=== PATIENT | male | born 1970 | race Caucasian/White ===

== ENCOUNTER 2018-09-20 19:30 | Emergency (ER) | payer BC ==
[~2018-09-20] VITALS: Ht 175.3 cm; Wt 71.7 kg
[~2018-09-20 19:30] MED LIST: ASCORBIC ACID500 MG PO; CIPRO500 MG PO; Calcium Carbonate PO; HUMALOG100 UNIT/3 SQ; LANTUS100 UNITS/ SQ; MAGNESIUM OXID400 MG PO; Multivitamins/Minerals PO; PROTONIX40 MG/ML PO; TYLENOL WITH C1 EACH PO; ZINC SULFATE220 M1 PO
[2018-09-20] MEDS ORDERED: CLINDAMYCIN PHOS 900MG/ 50ML 50 ML IV ONE ×2 (20:24→20:30)
[2018-09-20 20:52] LABS: BASOPHILS % 0.5 % (0.0-1.0); EOSINOPHILS # (AUTO) 0.1 (0.0-0.4); EOSINOPHILS % 0.8 % (0.0-6.0); HEMATOCRIT 36.7 % (38.2-49.6); HEMOGLOBIN 12.9 g/dL (14.0-18.0); LYMPHOCYTES # (AUTO) 1.9 (1.0-3.2); LYMPHOCYTES % 29.2 % (18.0-39.1); MEAN CORPUSCULAR HEMOGLOBIN 30.1 pg (28-32); MEAN CORPUSCULAR HGB CONC 35.1 g/dL (31-35); MEAN CORPUSCULAR VOLUME 85.5 fL (81-99); MONOCYTES # (AUTO) 0.6 (0.2-0.8); MONOCYTES % 8.5 % (4.4-11.3); NEUTROPHILS # (AUTO) 3.9 (2.1-6.9); NEUTROPHILS % 60.4 % (38.7-80.0); PLATELET COUNT 203 x10e3/uL (140-360); RED BLOOD COUNT 4.29 x10e6/uL (4.3-5.7); RED CELL DISTRIBUTION WIDTH 11.9 % (11.7-14.4)
[2018-09-20 21:05] LABS: ALANINE AMINOTRANSFERASE 16 IU/L (0-55); ALBUMIN 3.7 g/dL (3.5-5.0); ALKALINE PHOSPHATASE 79 IU/L (40-150); ANION GAP 14.2 mmol/L (8-16); BLOOD UREA NITROGEN 13 mg/dL (7-26); BUN/CREATININE RATIO 15 (6-25); CALCIUM 9.6 mg/dL (8.4-10.2); CARBON DIOXIDE 27 mmol/L (22-29); CHLORIDE 103 mmol/L (98-107); CREATININE, SERUM 0.88 mg/dL (0.72-1.25); EST GLOMERULAR FILTRATION RATE > 60 ML/MIN (60-); GLUCOSE 249 mg/dL (74-118); POTASSIUM 4.2 mmol/L (3.5-5.1); SODIUM 140 mmol/L (136-145)
--- NOTE | 2018-09-20 22:19 | Diagnostic Imaging Report ---
FOOT LEFT COMPLETE - 3 views HISTORY: Wound to foot, left posterior first digit, one week. COMPARISON: Left foot radiographs 08/26/2016. FINDINGS: Bones: No acute displaced fracture. No evidence of osteolysis. Osseous alignment is within normal limits. Joints: The joint spaces are well-maintained. Soft tissues: Subtle soft tissue defect along the plantar surface of the forefoot. IMPRESSION: No acute radiographic osseous abnormality. Subtle soft tissue defect along the plantar surface of the forefoot without underlying osseous abnormality. If there is clinical concern for osseous insult, recommend follow-up radiographs in 6 weeks. Signed by: Salvatore Banks DO on 09/20/2018 10:16 PM
[2018-09-20] MEDS ORDERED: CLINDAMYCIN HC300 MG PO (23:21)
== END 2018-09-20 23:38 | disposition home or self-care (01) ==
LOC: ER 19:30
DX: E11.622 Type 2 diabetes mellitus with other skin ulcer (principal); L97.529 Non-pressure chronic ulcer of other part of left foot with unspecified severity; L53.9 Erythematous condition, unspecified
CPT/HCPCS: 36415; 80053; 85025; 99283

== ENCOUNTER 2018-10-08 10:34 | Inpatient (IN) | payer BC ==
[~2018-10-08] VITALS: Ht 172.7 cm; Wt 82.3 kg
[~2018-10-08 10:34] MED LIST changes: +CLINDAMYCIN HC300 MG PO
--- OUTSIDE RECORDS SUMMARY | 2018-10-08 10:38 | XMS REPORT ---
Author Author [facility] Address Unknown Phone Unavailable Care Team Providers Care Clamshell Operator Name Role Phone Claude UGARTE Unavailable Unavailable Problems This patient has no known problems. Allergies, Adverse Reactions, Alerts This patient has no known allergies or adverse reactions. Medications This patient has no known medications. Results Test Description Test Time Test Comments Text Results Atomic Results Result Comments FOOT LEFT COMPLETE 2018-09-20 22:11:00 [facility] [address] [address] Patient Name: JORGE HATFIELD MR #: [id number] : 1970 Age/Sex: 48/M Req #: [id number] Adm Physician: Ordered by: VANDANA UGARTE MD Report #: [id number] Location: ER Room/Bed: Procedure: [id number] DX/FOOT LEFT COMPLETE Exam Date: 09/20/18 Exam Time: 2039 REPORT STATUS: Signed FOOT LEFT COMPLETE - 3 views HISTORY: Wound to foot, left posterior first digit, one week. COMPARISON: Left foot radiographs 08/26/2016. FINDINGS: Bones: No acute displaced fracture. No evidence of osteolysis. Osseous alignment is within normal limits. Joints: The joint spaces are well-maintained. Soft tissues: Subtle soft tissue defect along the plantar surface of the forefoot. IMPRESSION: No acute radiographic osseous abnormality. Subtle soft tissue defect along the plantar surface of the forefoot without underlying osseous abnormality. If there is clinical concern for osseous insult, recommend follow-up radiographs in 6 weeks. Signed by: Salvatore Banks DO on 09/20/2018 10:16 PM Dictated By: SALVATORE BANKS DO 15 Transcribed By: KULDIP on 09/20/182215 COPY TO: VANDANA UGARTE MD
[2018-10-08] MEDS ORDERED: SODIUM CHLORIDE FLUSH 10 ML SYR INJ PRN (11:45)
[2018-10-08] MEDS ORDERED: PROMETHAZINE 25MG/ NS 50ML (IV) IV PRN (12:00)
[2018-10-08 12:05] VITALS: BP 161/91
[2018-10-08] MEDS: ACETAMINOPHEN 325 MG TAB PO PRN ×2 (12:19→20:38)
[2018-10-08 12:37] LABS: BASOPHILS # (AUTO) 0.1 (0.0-0.1); BASOPHILS % 0.3 % (0.0-1.0); EOSINOPHILS % 0.2 % (0.0-6.0); HEMOGLOBIN 12.9 g/dL (14.0-18.0); LYMPHOCYTES # (AUTO) 1.1 (1.0-3.2); LYMPHOCYTES % 6.1 % (18.0-39.1); MEAN CORPUSCULAR HGB CONC 34.9 g/dL (31-35); MONOCYTES % 5.4 % (4.4-11.3); NEUTROPHILS # (AUTO) 15.8 (2.1-6.9); NEUTROPHILS % 87.1 % (38.7-80.0); PLATELET COUNT 267 x10e3/uL (140-360); RED CELL DISTRIBUTION WIDTH 11.5 % (11.7-14.4)
[2018-10-08 12:40] LABS: INR 1.07; PROTHROMBIN TIME 14.4 seconds (11.9-14.5)
[2018-10-08 12:50] LABS: ALANINE AMINOTRANSFERASE 13 IU/L (0-55); ALBUMIN/GLOBULIN RATIO 0.6 (0.8-2.0); ALKALINE PHOSPHATASE 95 IU/L (40-150); ANION GAP 19.5 mmol/L (8-16); BLOOD UREA NITROGEN 15 mg/dL (7-26); BUN/CREATININE RATIO 18 (6-25); CALCIUM 10.2 mg/dL (8.4-10.2); CARBON DIOXIDE 23 mmol/L (22-29); CHLORIDE 96 mmol/L (98-107); CREATININE, SERUM 0.82 mg/dL (0.72-1.25); EST GLOMERULAR FILTRATION RATE > 60 ML/MIN (60-); GLUCOSE 290 mg/dL (74-118); POTASSIUM 4.5 mmol/L (3.5-5.1); SODIUM 134 mmol/L (136-145)
[2018-10-08 13:00] LABS: ERYTHROCYTE SEDIMENTATION RATE 98 mm/hr (0-13)
[2018-10-08] MEDS ORDERED: DEXTROSE 50% SYRINGE 50 ML IV PRN (13:45)
[2018-10-08] MEDS ORDERED: HYDRALAZINE HCL 20 MG/ML VIAL IV PRN (13:45)
[2018-10-08] MEDS ORDERED: SODIUM CHLORIDE 0.9% 50ML 50 ML ONE (14:10)
[2018-10-08] MEDS: PIPER-TAZ 3.375 GM 50 ML IV SCH ×2 (14:40→16:01)
[2018-10-08 15:02] VITALS: BP 161/91
--- NOTE | 2018-10-08 15:05 | NUR ---
Visit made by the Spiritual Care Department Pastoral Visitor, Rosa Kramer. PV provided pastoral presence, prayer, hospitality, and supportive listening. Pastoral Visitor informed pt/family of the scope of [employer] and availability. LUIS GONZALEZ [employer]ographic Press Screwmaker Spiritual Care Department O: [phone] Pager: [phone] ([phone] number calling from)
[2018-10-08] MEDS: VANCOMYCIN 1GM/NS 250 ML 250 ML IV SCH (15:15)
[2018-10-08] MEDS ORDERED: NOVOLOG100 UNITS1 SC (15:17)
--- NOTE | 2018-10-08 15:29 | Diagnostic Imaging Report ---
EXAMINATION: CHEST SINGLE (PORTABLE) INDICATION: Cellulitis COMPARISON: None FINDINGS: LINES/TUBES:None LUNGS:The lung volumes are low. No focal consolidation or pulmonary edema. PLEURA:No pleural effusion or pneumothorax. MEDIASTINUM:The cardiomediastinal silhouette appears normal in size and shape. BONES/SOFT TISSUES:No acute osseous injury. ABDOMEN:No free air under the diaphragm. IMPRESSION: Low lung volumes with no focal pneumonia or pulmonary edema. Signed by: Red Sun MD on 10/08/2018 3:26 PM
--- NOTE | 2018-10-08 15:32 | Diagnostic Imaging Report ---
EXAMINATION: FOOT LEFT COMPLETE INDICATION: Cellulitis COMPARISON: Left foot radiographs of 09/20/2018 FINDINGS: 3 views of the left foot demonstrate no acute fracture or dislocation. Alignment is anatomic. Soft tissue defect along the medial aspect of the great toe and small amount of subcutaneous emphysema tracking in the soft tissues on either side of the great toe MTP joint. IMPRESSION: Findings of soft tissue wound centered about the MTP joint of the great toe without acute underlying osseous injury or specific findings of osteomyelitis. Signed by: Red Sun MD on 10/08/2018 3:29 PM
[2018-10-08] MEDS ORDERED: GADOBENATE DIMEGLUMINE 1 ML IV ONE (15:39)
--- NOTE | 2018-10-08 16:06 | History and Physical ---
CHIEF COMPLAINT: Left foot pain. HISTORY OF PRESENT ILLNESS: This is a 48-year-old male with known history of peripheral neuropathy, uncontrolled type 2 diabetes, comes into the hospital as a direct admission by the unit aide due to worsening left foot pain has been ongoing for the last 3 weeks. The patient reports that he stepped on an object about 3 weeks ago and noticed that his foot was progressively getting worse. He did see his PCP, was given some oral antibiotics with no improvement. He had an appointment to see one of the unit aide, Dr. Chapman today, but he was not available instead he saw Dr. Mak and was told to come to the hospital for further evaluation and management. The patient denies any discharge or any pus from the left foot. Denies any fever at home. The patient is seen and evaluated at bedside on the medical floor. Currently, he is doing well with no other complaints. Vital signs were stable during my evaluation. REVIEW OF SYSTEMS: Pertinent positives: Left foot pain. Pertinent negatives: Denies any chest pain, palpitation, nausea, vomiting, diarrhea, dysuria, hematuria, frequency, urgency, lightheadedness, dizziness, abdominal pain, headaches, shortness of breath, cough, congestion, fever, or any other complaints. The rest of 14-point review of systems are reviewed with the patient and are negative. ALLERGIES: NO KNOWN DRUG ALLERGIES. HOME MEDICATIONS: Please see med reconciliation form. PAST MEDICAL HISTORY: Uncontrolled type 2 diabetes, peripheral neuropathy. PAST SURGICAL HISTORY: He had right hand some sort of release in his palmar aspects of his right hand, some tendon . FAMILY HISTORY: Hypertension and diabetes. SOCIAL HISTORY: No drugs, no alcohol. Does not smoke. PHYSICAL EXAMINATION: VITAL SIGNS: Temperature is 99.6, pulse , respiratory rate is 19, blood pressure , pulse ox 98% on room air. GENERAL: Not in acute distress. Alert and oriented x3. Cooperative on examination. HEENT: Head is normocephalic, atraumatic. Eyes; pupils are equal, round, and reactive to light bilaterally. Extraocular movements are intact bilaterally. Throat, no evidence of any erythema or exudates in the posterior pharynx. Has poor dentition. NECK: Supple. Good range of motion. PULMONARY: Clear to auscultation bilaterally. No wheezing, no rales, no rhonchi, no crackles appreciated. CARDIOVASCULAR: Positive S1, S2. No murmurs, rubs, or gallops appreciated. ABDOMEN: Soft, nondistended, and nontender to palpation. Bowel sounds present. MUSCULOSKELETAL: Strength is 5/5 throughout. No evidence of any muscle deficits on examination. No weakness appreciated. NEUROLOGICAL: Cranial nerves II through XII grossly intact. No evidence of neurological deficits on exam. SKIN: Intact. Warm to touch. Good cap refill. PSYCHIATRIC: Normal affect and mood. EXTREMITIES: Left foot swelling, erythematic, no discharge seen, currently has a wrapping. LABORATORY DATA: Lab findings show white count was 18.1, hemoglobin 12.8, hematocrit 37, platelets of 267. Coagulation; PT 14, INR 1.07. Chemistry; sodium 134, potassium 4.5, chloride 96, bicarbonate 23, anion gap 19, BUN 15, creatinine 0.82, glucose is 290, albumin was 3. Hemoglobin A1c was 12, total bilirubin is 0.7, AST 9, ALT 13, alkaline phosphatase 95. MICROBIOLOGY: Blood cultures are pending. IMAGING STUDIES: Right foot x-ray was performed on 09/20/2018 and shows no acute radiographic osseous abnormality. Subtle soft tissue defect along the plantar aspect of the forefoot from underlying osseous abnormality. If there is clinical concern for osseous, we recommend follow up radiographs . IMPRESSION: 1. Diabetic foot ulcer with worsening cellulitis. 2. Uncontrolled type 2 diabetes. 3. Subjective fever. PLAN: At this time, I will start on IV vancomycin and Zosyn. Blood cultures are pending. There is no discharge to have wound cultures. Podiatry has been consulted as well. We will get arterial Doppler as well to assess flow as well. We will get an MRI of the foot with and without contrast to rule out osteomyelitis and also underlying abscess. Pain control has been written as well as medication. We are going to resume all the same home medications with no changes. Put on Lovenox for DVT prophylaxis. Otherwise, we will continue same plan of care and monitor him very closely. Consult with podiatry and ID. MD BARRY Griffin/YEIMI /[id number]
[2018-10-08] MEDS: ENOXAPARIN SOD INJ 40 MG/0.4 ML SYR SC SCH (16:55)
[2018-10-08] MEDS: ASCORBIC ACID 500 MG TAB PO SCH (16:55)
[2018-10-08 17:00] VITALS: BP 120/74
[2018-10-08] MEDS: CALCIUM CARBONATE 500 MG CHEWABLE TABS PO SCH ×2 (17:00→20:37)
[2018-10-08] MEDS: INSULIN LISPRO 100 UNIT/1 ML 3ML VIAL SQ SCH (17:19)
--- NOTE | 2018-10-08 18:51 | NUR ---
Wound culture collected and taken to lab, Betadine wet to dry applied to left foot per order.
--- NOTE | 2018-10-08 19:00 | NUR ---
RECEIVED PATIENT IN REPORT. PATIENT STATES PAIN IN 12/19, BUT THAT IT COMES AND GOES IN WAVES. NO OTHER S&S OF DISTRESS NOTED. LLE IS FRESHLY DRESSED AND C/D/I. PATIENT RESTING LEG ON A PILLOW. STRONG PULSES FELT TO LOWER EXTREMITIES. BED LOCKED IN LOWEST POSITION, SIDE RAILS UPX2, CALL LIGHT IN REACH.
[2018-10-08 19:20] VITALS: BP 122/68
[2018-10-08] MEDS: ONDANSETRON HCL INJ 2MG/ML 2ML 2 MG/ML VIAL IV PRN (19:52)
[2018-10-08] MEDS: MORPHINE SULFATE INJ 4 MG/ML INJ 1ML IV PRN (19:52)
[2018-10-08 20:00] VITALS: BP 122/68
[2018-10-08] MEDS: INSULIN GLARGINE 100 UNITS/ML VIAL SQ SCH (20:37)
--- NOTE | 2018-10-08 21:02 | Diagnostic Imaging Report ---
TECHNIQUE: Magnetic resonance imaging of the LEFT foot (forefoot) was performed WITH and WITHOUT injected contrast, 16 cc of intravenous MultiHance. HISTORY: Water blister, cellulitis, rule out osteomyelitis and abscess COMPARISON: Left foot radiographs October 08, 2018. DISCUSSION: Bone: Patchy bone marrow edema at the base of the first proximal phalanx. Subtle patchy decreased corresponding fatty marrow signal, but noncompliant. Diffuse sclerosis of the fibular hallux sesamoid. Joints: No dislocation. Trace nonspecific first metatarsophalangeal effusion. Soft Tissues: Diffuse soft tissue edema hyperemia. No drainable fluid collection. Superficial soft tissue defects at the medial and plantar aspect of the base of the great toe. IMPRESSION: 1. Low probability of osteomyelitis involving the base of the proximal phalanx of the great toe at this time. Advise close clinical follow-up. 2. Findings compatible with cellulitis, no drainable abscess. 3. 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 Signed by: Dr. Sinan Ramos D.O., M.M.M. on 10/08/2018 8:59 PM
[2018-10-09] VITALS (8 sets, daily range): BP systolic 108–131; BP diastolic 61–77
[2018-10-09] MEDS: PIPER-TAZ 3.375 GM 50 ML IV SCH ×4 (00:56→18:36)
[2018-10-09] MEDS: VANCOMYCIN 1GM/NS 250 ML 250 ML IV SCH ×2 (01:41→14:24)
[2018-10-09] MEDS: MORPHINE SULFATE INJ 4 MG/ML INJ 1ML IV PRN ×5 (01:41→18:36)
[2018-10-09 05:42] LABS: BASOPHILS % 0.3 % (0.0-1.0); EOSINOPHILS # (AUTO) 0.2 (0.0-0.4); EOSINOPHILS % 1.3 % (0.0-6.0); HEMATOCRIT 32.1 % (38.2-49.6); HEMOGLOBIN 11.1 g/dL (14.0-18.0); LYMPHOCYTES # (AUTO) 1.7 (1.0-3.2); LYMPHOCYTES % 10.8 % (18.0-39.1); MEAN CORPUSCULAR HEMOGLOBIN 29.6 pg (28-32); MEAN CORPUSCULAR HGB CONC 34.6 g/dL (31-35); MEAN CORPUSCULAR VOLUME 85.6 fL (81-99); MONOCYTES # (AUTO) 1.1 (0.2-0.8); MONOCYTES % 7.3 % (4.4-11.3); NEUTROPHILS # (AUTO) 12.2 (2.1-6.9); NEUTROPHILS % 79.3 % (38.7-80.0); PLATELET COUNT 227 x10e3/uL (140-360); RED BLOOD COUNT 3.75 x10e6/uL (4.3-5.7); RED CELL DISTRIBUTION WIDTH 11.5 % (11.7-14.4)
[2018-10-09 06:05] LABS: ANION GAP 13.7 mmol/L (8-16); BLOOD UREA NITROGEN 16 mg/dL (7-26); BUN/CREATININE RATIO 21 (6-25); CALCIUM 9.2 mg/dL (8.4-10.2); CARBON DIOXIDE 26 mmol/L (22-29); CHLORIDE 100 mmol/L (98-107); CREATININE, SERUM 0.75 mg/dL (0.72-1.25); EST GLOMERULAR FILTRATION RATE > 60 ML/MIN (60-); GLUCOSE 149 mg/dL (74-118); POTASSIUM 3.7 mmol/L (3.5-5.1); SODIUM 136 mmol/L (136-145)
--- NOTE | 2018-10-09 07:00 | NUR ---
BEDSIDE SHIFT CHANGE REPORT RECEIVED FROM WOLF RUELAS. PT DENIES NEEDS AT THIS TIME.
[2018-10-09] MEDS: ASCORBIC ACID 500 MG TAB PO SCH ×2 (08:26→16:51)
[2018-10-09] MEDS: PANTOPRAZOLE SOD 40 MG TABEC PO SCH (08:26)
[2018-10-09] MEDS: MAGNESIUM OXIDE 400 MG TAB PO SCH (08:26)
[2018-10-09] MEDS: CALCIUM CARBONATE 500 MG CHEWABLE TABS PO SCH ×3 (08:26→21:42)
[2018-10-09] MEDS: ZINC SULFATE 220 MG CAP PO SCH ×2 (08:26→16:52)
[2018-10-09] MEDS: MULTIVITAMINS/MINERALS TAB PO SCH (08:26)
[2018-10-09] MEDS: ACETAMINOPHEN 325 MG TAB PO PRN ×2 (08:26→23:45)
[2018-10-09] MEDS: INSULIN LISPRO 100 UNIT/1 ML 3ML VIAL SQ SCH ×3 (08:27→16:58)
--- NOTE | 2018-10-09 10:50 | NUR ---
WOUND CARE NURSE INITIAL CONSULTATION. 48 YEAR OLD MALE ADMITTED TO [facility] WITH DX OF ABSCESS WITH CELLULITIS TO LEFT FOOT. HEAD TO TOE SKIN ASSESSMENT PERFORMED TODAY. PT PRESENTS WITH ULCERS TO LEFT FIRST METATARSAL HEAD AND FIRST AND SECOND TOE WEB SPACE. CELLULITIS AND PURULENT DRAINAGE ARE PRESENT. PALPABLE PULSES. NO OTHER AREAS OF CONCERN NOTED AT THIS TIME. LABS: WBC: 15.31 ESR: 98 ALB: 3.0 WOUND CULTURE RESULTS ARE PENDING. MRI, LEFT FOOT SHOWS LOW PROBABILITY OF OSTEOMYELITIS INVOLVING THE BASE OF THE PROXIMAL PHALANX OF THE GREAT TOE AT THIS TIME. ADVANCE CLOSE CLINICAL FOLLOW UP. FINDINGS COMPATIBLE WITH CELLULITIS, NO DRAINABLE ABSCESS. CHRONIC SEQUELA OF VASCULAR PROCESS OF THE FIBULAR HALLUX SESAMOID. SPOKE WITH DR. GRAF RECEIVED ORDERS TO APPLY BETADINE WET TO DRY DRESSING DAILY. RECOMMENDATIONS: ENCOURAGE PT TO REPOSITION EVERY TWO HOURS AND PRN. PROVIDE BILATERAL HEEL PROTECTORS AND PILLOW SUSPENSIONS. THANKS FOR THIS CONSULTATION. Addendum: 10/09/18 at 1107 by Leeanne Balderas RN Amended: Links added.
[2018-10-09] MEDS: HYDROCODONE/APAP 5MG-325MG TAB PO PRN ×2 (12:58→21:55)
[2018-10-09] MEDS: ENOXAPARIN SOD INJ 40 MG/0.4 ML SYR SC SCH (16:52)
--- NOTE | 2018-10-09 17:53 | Consultation ---
DATE OF CONSULTATION: 10/09/2018 INFECTIOUS DISEASE CONSULT REASON FOR CONSULTATION: Infected left foot. Thank you, Dr. Nicholas, for asking me to see this patient. HISTORY OF PRESENT ILLNESS: The patient is a 48-year-old man referred for infected left foot. He was admitted from the medicare nurse's office because of worsening left foot pain and redness. The patient developed an ulcer over the left 1st metatarsophalangeal joint about four weeks earlier. He claimed that he was initially evaluated at a free-standing Emergency Room and later discharged home on topical wound care. Unfortunately, the wound continued to increase and a few days ago, he developed increased pain, swelling and redness of the left foot, associated with chills and subjective fever. At triage, he was noted to have temperature of 99.6 degrees Fahrenheit, pulse rate 108, respiratory rate 19, blood pressure 161/91, and oxygen saturation 96% on room air. Initial laboratory studies showed blood leukocyte count of 18,120 with 87.1% neutrophils, blood glucose 318, and hemoglobin A1c 12.2. MRI of the left foot showed low probability of osteomyelitis and findings compatible with cellulitis, but no drainable abscess. PAST MEDICAL HISTORY: Diabetes mellitus type 2 with peripheral neuropathy. PAST SURGICAL HISTORY: Right hand tendon release surgery and right foot incision and drainage. ALLERGIES: NO KNOWN DRUG ALLERGIES. MEDICATIONS: See MAR. The current antibiotics are Zosyn 3.375 g IV piggyback q.6 hours and vancomycin 1 g IV piggyback q.12 hours. IMMUNIZATION: He received tetanus-diphtheria vaccine in 2018. FAMILY HISTORY: Significant for diabetes mellitus type 2 and hypertension. SOCIAL HISTORY: No tobacco, alcohol, or recreational drug use. REVIEW OF SYSTEMS: As per history of present illness. He still has left foot pain, but reports a good control with pain medication. The fever appears to subside since admission and management. He denies cough, shortness of breath, nausea, vomiting, diarrhea, abdominal pain, and dysuria. PHYSICAL EXAMINATION: GENERAL: No acute distress. VITAL SIGNS: T-max 101.1, Tc 98.9, pulse rate 102, respiratory rate 18, blood pressure 131/77, weight 172 pounds. HEENT: Normocephalic. There is no icterus or injection of the conjunctivae. There is no ear or nasal discharge. Moist oral mucosa. No pharyngeal erythema or exudate. NECK: Supple. No meningismus. LUNGS: Clear to auscultation bilaterally. HEART: Normal S1 and S2. Regular. ABDOMEN: Soft and nontender. EXTREMITIES: There is an ulcer on the medial aspect of the left 1st metatarsophalangeal joint with 100% slough. There is an unroofed blister surrounding the ulcer involving the left 1st metatarsal pharyngeal joint and extending distally to the proximal phalanx of the left great toe and proximally to the adjacent 1st metatarsal. There is erythema with edema of the left foot. The dorsalis pedis and posterior tibial pulses are weak in both feet. There is no edema, clubbing, or cyanosis of the rest of the extremities. SKIN: As per extremities. No rash. SLOT TAG INSERTER: Awake, alert, oriented to person, place, and time. There is decreased sensation to monofilament test of the feet. Nonfocal. LABORATORY AND DIAGNOSTICS: 10/09/2018 WBC 15,310, hemoglobin 11.1, platelet 227,000, neutrophils 79.3, lymphocytes 10.8, monocytes 7.3, eosinophils 1.3, and basophils 0.3. BUN 16, creatinine 0.75. C-reactive protein is pending. Blood culture is pending. Wound culture is also pending. IMPRESSION: 1. Probable sepsis from infected left diabetic foot ulcer with cellulitis, present on admission. 2. Diabetes mellitus type 2 with peripheral neuropathy, uncontrolled. PLAN: 1. Await culture result and arterial Doppler ultrasound report. 2. Continue current antibiotics. 3. Glycemic control. 4. Podiatry input has been noted. MD ABDELRAHMAN Rendon/YEIMI /[id number] MTDChai
--- NOTE | 2018-10-09 19:53 | Progress Note ---
DATE: 10/09/2018 Medicine Progress Note SUBJECTIVE: The patient is doing well today with no complaints. Imaging studies of the left foot, MRI shows no evidence of any abscess or osteomyelitis. The patient is doing well. Pain is well controlled. LABORATORY FINDINGS: Show white count is 15.3, hemoglobin 11, hematocrit 32, and platelets of 227. Chemistry, sodium 133, potassium 3.7, chloride 100, bicarb 26, anion gap of 13, BUN 16, creatinine is 0.75, glucose is 149, calcium is 9.2. MICROBIOLOGY: Blood cultures, no growth. Wound cultures, no growth to date. IMAGING STUDIES: MRI of the foot shows low probability of osteomyelitis involving the base of the proximal phalanx of the great toe at this time. Findings compatible with cellulitis. No evidence of any drainable abscess. There is some chronic . Chest x-ray, low lung volumes with no focal pneumonia or pulmonary edema. PHYSICAL EXAMINATION: VITAL SIGNS: Temperature is 99.5, T-max is 100.7, pulse 90, respiratory rate is 20, blood pressure 117/65, pulse ox 95% on room air. GENERAL: Not in acute distress. Alert and oriented x3. Cooperative on examination. HEENT: Head is normocephalic, atraumatic. Eyes; pupils are equal, round, and reactive to light bilaterally. Extraocular movements are intact bilaterally. Throat, no evidence of erythema or exudates in the posterior pharynx. Has poor dentition. NECK: Supple. Good range of motion. PULMONARY: Clear to auscultation bilaterally. No wheezing, rales, or rhonchi. No crackles appreciated. CARDIOVASCULAR: Positive S1, S2. No murmurs, rubs, or gallops appreciated. ABDOMEN: Soft, nondistended, and nontender to palpation. Bowel sounds present. MUSCULOSKELETAL: Strength is 5/5 throughout. No evidence of muscles deficits on examination. No weakness appreciated. NEUROLOGIC: Cranial nerves 2 through 12 are grossly intact. No evidence of neurological deficits on exam. SKIN: Left foot cellulitis on the left big toe. PSYCHIATRIC: Normal affect and mood. EXTREMITIES: No edema. Good range of motion throughout. IMPRESSION: 1. Diabetic foot ulcer with worsening cellulitis on the left foot. 2. Uncontrolled type 2 diabetes. 3. Subjective fever. PLAN: MRI of the foot was negative for abscess or osteomyelitis. Continue with IV antibiotics as per Infectious Disease. Blood cultures are pending. We will await for final recommendations by Podiatry. He may need some local debridement. He is on Lovenox for DVT prophylaxis. Follow ID and Podiatry at this time. Continue with same plan of care. Discussed plan of care with nurse and patient. MD BARRY Griffin/YEIMI /[id number]
[2018-10-09] MEDS ORDERED: PROMETHAZINE 25MG/SOD CHL 0.9% 50 ML IV PRN (20:00)
[2018-10-09] MEDS: INSULIN GLARGINE 100 UNITS/ML VIAL SQ SCH (21:45)
[2018-10-10] VITALS (8 sets, daily range): BP systolic 110–131; BP diastolic 63–79
--- NOTE | 2018-10-10 00:30 | Consultation ---
DATE OF CONSULTATION: 10/09/2018 HISTORY OF PRESENT ILLNESS: This is a 48-year-old male, who came into the office yesterday and was seen by Dr. Mak and he was instructed to come into the ER. He has a wound at the plantar aspect of the left foot and he says over the weekend, the erythema and edema began to increase and he started having pain and he saw more pus to the area. PAST MEDICAL HISTORY: Diabetes mellitus, uncontrolled and peripheral neuropathy. PAST SURGICAL HISTORY: He had a carpal tunnel release. SOCIAL HISTORY: He recently became employed after being unemployed for a while. He says he was unable to afford his medications, so he just started taking his diabetic medication. He denies any alcohol, tobacco, or illicit drug use. ALLERGIES: NO KNOWN ALLERGIES. REVIEW OF SYSTEMS: Noncontributory except for an ulcer to the left foot without pain. LABORATORY AND IMAGING DATA: MRI, low probability of osteomyelitis involving the base of the proximal phalanx. White blood count went from 18.2 on 10/08/2018, to 15.31 on 10/09/2018. His blood culture is pending after 24 hours, nothing has grown. PHYSICAL EXAMINATION: Lower extremity physical exam, pedal pulses palpable. Capillary filling time 3 seconds. There is a full-thickness ulcer to the plantar aspect of the left foot and at times, tarsal that is draining also medially. There is erythema and edema. They are localized to about the mid foot. At this point, there is no streaking erythema present at mid foot or ascending lymphangitis. Intrinsic minus type of foot. Protective threshold is absent. ASSESSMENT: 1. Ulcer, grade 3, left. 2. Diabetes, uncontrolled. 3. Cellulitis. PLAN: Discuss treatment with the patient tomorrow. I am going to take him for a debridement, a bone biopsy, and a culture of the bone. Plan to irrigate the area down. Possibly, we will insert antibiotic beads. He is currently under the care . He will need compliance with his diabetes and he is aware of the heel, so he will be no weightbearing and he is aware of that too. He will be n.p.o. tonight and he will be scheduled for surgery tomorrow on October 10, 2018. Thank you for allowing me to participate in the care of this patient. Jolie SHERRIE Brooks /[id number]
--- NOTE | 2018-10-10 00:36 | NUR ---
PT'S IV TO LEFT AC NOTED LEAKING,CATH TIP NOTED INTACT UP ON REMOVAL.DRESSING APPLIED.NEW IV STARTED TO RIGHT FA 20 G.
[2018-10-10] MEDS: PIPER-TAZ 3.375 GM 50 ML IV SCH ×4 (01:00→17:02)
[2018-10-10] MEDS: VANCOMYCIN 1GM/NS 250 ML 250 ML IV SCH ×2 (03:00→14:00)
[2018-10-10] MEDS: MORPHINE SULFATE INJ 4 MG/ML INJ 1ML IV PRN ×3 (05:55→19:56)
--- NOTE | 2018-10-10 07:00 | NUR ---
BEDSIDE SHIFT CHANGE REPORT RECEIVED FROM DARVIN RUELAS. PT DENIES NEEDS AT THIS TIME.
--- NOTE | 2018-10-10 07:09 | NUR ---
REPORT GIVEN TO ONCOMING NURSE,WALKING ROUNDS MADE.PT RESTING IN BED WITH NO S/S OF DISTRESS.
[2018-10-10] MEDS: INSULIN LISPRO 100 UNIT/1 ML 3ML VIAL SQ SCH ×3 (07:30→17:03)
[2018-10-10] MEDS: PANTOPRAZOLE SOD 40 MG TABEC PO SCH (07:30)
[2018-10-10] MEDS: CALCIUM CARBONATE 500 MG CHEWABLE TABS PO SCH ×3 (07:52→21:00)
[2018-10-10] MEDS: MULTIVITAMINS/MINERALS TAB PO SCH (07:52)
[2018-10-10] MEDS: ASCORBIC ACID 500 MG TAB PO SCH ×2 (07:52→17:02)
[2018-10-10] MEDS: MAGNESIUM OXIDE 400 MG TAB PO SCH (07:52)
[2018-10-10] MEDS: ZINC SULFATE 220 MG CAP PO SCH ×2 (07:53→17:02)
--- NOTE | 2018-10-10 13:18 | NUR ---
PT OFF THE FLOOR TO OR AT THIS TIME.
[2018-10-10] MEDS ORDERED: BACITRACIN 50,000 UNIT VIAL ONE ×2 (13:21→13:22)
[2018-10-10] MEDS ORDERED: VANCOMYCIN HCL 1 GM VIAL ONE ×2 (13:29→13:51)
[2018-10-10] MEDS ORDERED: SODIUM CHLORIDE 0.9% 250ML 0 ML ONE (13:51)
[2018-10-10] MEDS ORDERED: SODIUM CHLORIDE 0.9% 250ML 250 ML ONE (13:51)
[2018-10-10] MEDS: HYDROCODONE/APAP 5MG-325MG TAB PO PRN ×2 (16:28→17:02)
[2018-10-10] MEDS: ENOXAPARIN SOD INJ 40 MG/0.4 ML SYR SC SCH (17:02)
[2018-10-10] MEDS ORDERED: SEVOFLURANE INHAL SOLN 250 ML PEN BTL ONE (17:48)
[2018-10-10] MEDS ORDERED: LIDOCAINE HCL 2% LOCAL INJ 5 ML SDV VIAL INJ ONE (17:48)
[2018-10-10] MEDS ORDERED: DEXAMETHASONE SOD PHOS INJ 4 MG/ML VIAL ONE (17:48)
[2018-10-10] MEDS ORDERED: PROPOFOL IV EMULSION 10 MG/ML 20 ML VIAL ONE (17:48)
[2018-10-10] MEDS ORDERED: ONDANSETRON HCL INJ 2MG/ML 2ML 2 MG/ML VIAL ONE (17:48)
[2018-10-10] MEDS ORDERED: FENTANYL CITRATE/PF 100MCG/2 ML INJ ONE (18:54)
[2018-10-10] MEDS ORDERED: MIDAZOLAM HCL 2 MG/2 ML VIAL ONE (18:54)
[2018-10-10] MEDS: ACETAMINOPHEN 325 MG TAB PO PRN (19:55)
--- NOTE | 2018-10-10 20:33 | Progress Note ---
DATE: 10/10/2018 Medicine Progress Note SUBJECTIVE: The patient underwent a left foot debridement, performed by Podiatry today. The patient was seen postoperatively, currently doing well with no complaints. Pain is well controlled. PHYSICAL EXAMINATION: VITAL SIGNS: Temperature 99.4, pulse 101, respiratory rate is 16, blood pressure 131/77, pulse ox 95% on room air. GENERAL: In no acute distress, alert, and oriented x3. Cooperative on examination. HEENT: Head is normocephalic, atraumatic. Eyes; pupils are equal, round, and reactive to light bilaterally. Extraocular movements are intact bilaterally. Throat, no evidence of any erythema or exudates in the posterior pharynx. Has poor dentition. NECK: Supple. Good range of motion throughout. PULMONARY: Clear to auscultation bilaterally. No wheezing, no rales, no rhonchi, no crackles appreciated. CARDIOVASCULAR: Positive S1, S2. No murmurs, rubs, or gallops appreciated. ABDOMEN: Soft, nondistended, and nontender to palpation. Bowel sounds present. MUSCULOSKELETAL: Strength is 5/5 throughout. No evidence of any muscle deficits on examination. No weakness appreciated. NEUROLOGIC: Cranial nerves II through XII grossly intact. No evidence of any neurological deficits. SKIN: Intact. Warm to touch. Good capillary refill. PSYCHIATRIC: Normal affect and mood. EXTREMITIES: No edema. Good range of motion throughout. LABORATORY FINDINGS: There was no labs today. IMPRESSION: 1. Diabetic foot ulcer with worsening cellulitis on the left foot, status post debridement performed today. 2. Uncontrolled type 2 diabetes. 3. Subjective fever. PLAN: MRI of the foot was negative. He as an outpatient underwent debridement of the left foot today. Blood cultures no growth to date. Continue with final wound cultures. Continue with IV antibiotics. He is following very closely as well. Continue same plan of care. Monitor closely. Pain is well controlled. MD BARRY Griffin/MODEfraín /[id number]
--- NOTE | 2018-10-10 21:32 | Operative Report ---
DATE OF PROCEDURE: SURGEON: Jolie Brooks DPM PREOPERATIVE DIAGNOSES: 1. Abscess with diabetic foot ulcer, left hallux. 2. Diabetic foot ulcer, left plantar intermetatarsal space 1st. POSTOPERATIVE DIAGNOSES: 1. Abscess with diabetic foot ulcer, left hallux. 2. Diabetic foot ulcer, left plantar intermetatarsal space 1st. PROCEDURES: Incision and drainage with debridement to the level of bone and irrigation, cultures and sensitivities of bone. COMPLICATIONS: None. ANESTHESIA: General anesthetic. HEMOSTASIS: None. ESTIMATED BLOOD LOSS: Less than 10 mL. MATERIALS: Antibiotic beads with vancomycin. PROCEDURE IN DETAIL: Under mild sedation, the patient was brought to the operative room, placed on the operating table in supine position. Following IV sedation, anesthesia was obtained with a general anesthetic. At this point, the left foot was prepped and draped in usual aseptic manner. The leg was lowered to the table. Attention was directed to the plantar aspect where a plantar wound utilizing sharp dissection, the wound was excised with a #15 blade. At this point, it was noted to be tracking into the intermetatarsal space; where a linear incision was made, a large abscess was then drained, utilizing a bone rongeur all nonviable tissue was removed. Attention was directed to the medial aspect of 1st MPJ, where a 2nd ulcer was excised. At this point, the ulcer was also tracked down into the intermetatarsal space. Once the nonviable tissue was removed and the abscesses were drained, the area was then flushed with copious irrigation with pressure applications chemist 3000 mL. Cultures and sensitivity of the 1st MPJ were taken. The antibiotic beads were inserted into the intermetatarsal space, where the tunnel was tracking into it. A clean dressing was applied consisting of Betadine soak 4x4s, Kerlix, and Mekhi bandage. The patient tolerated procedure and anesthesia well without complications, will be readmitted back into the hospital. Wound VAC will be applied tomorrow. He continues on IV antibiotics. His hemoglobin A1c is 12.6, and I have discussed with him the importance of compliance before surgery today. I will continue to follow. Prognosis is guarded. Jolie Brooks DPM ER/MODL /[id number]
[2018-10-10] MEDS: INSULIN GLARGINE 100 UNITS/ML VIAL SQ SCH (21:48)
[2018-10-11] VITALS (8 sets, daily range): BP systolic 116–125; BP diastolic 66–75
[2018-10-11] MEDS: HYDROCODONE/APAP 5MG-325MG TAB PO PRN ×4 (00:10→18:22)
[2018-10-11] MEDS: VANCOMYCIN 1GM/NS 250 ML 250 ML IV SCH ×2 (02:05→14:15)
[2018-10-11 05:05] LABS: BASOPHILS % 0.2 % (0.0-1.0); EOSINOPHILS # (AUTO) 0.1 (0.0-0.4); EOSINOPHILS % 0.6 % (0.0-6.0); HEMATOCRIT 30.6 % (38.2-49.6); HEMOGLOBIN 10.1 g/dL (14.0-18.0); LYMPHOCYTES # (AUTO) 1.2 (1.0-3.2); MEAN CORPUSCULAR HEMOGLOBIN 28.6 pg (28-32); MEAN CORPUSCULAR VOLUME 86.7 fL (81-99); MONOCYTES # (AUTO) 1.3 (0.2-0.8); MONOCYTES % 7.5 % (4.4-11.3); NEUTROPHILS # (AUTO) 14.1 (2.1-6.9); NEUTROPHILS % 83.9 % (38.7-80.0); PLATELET COUNT 254 x10e3/uL (140-360); RED BLOOD COUNT 3.53 x10e6/uL (4.3-5.7); RED CELL DISTRIBUTION WIDTH 11.6 % (11.7-14.4)
[2018-10-11 05:37] LABS: ANION GAP 14.8 mmol/L (8-16); CALCIUM 8.8 mg/dL (8.4-10.2); POTASSIUM 3.8 mmol/L (3.5-5.1)
[2018-10-11 05:41] LABS: CREATININE, SERUM 1.62 mg/dL (0.72-1.25)
[2018-10-11] MEDS ORDERED: SODIUM CHLORIDE 0.9% 50ML 50 ML ONE (05:52)
[2018-10-11] MEDS: PIPER-TAZ 3.375 GM 50 ML IV SCH ×4 (06:00→17:55)
--- NOTE | 2018-10-11 07:00 | NUR ---
BEDSIDE SHIFT CHANGE REPORT RECEIVED FROM DARVIN RUELAS. PT DENIES NEEDS AT THIS TIME.
--- NOTE | 2018-10-11 07:09 | NUR ---
REPORT GIVEN TO ONCOMING NURSE.WALKING ROUNDS MADE.PT RESTING IN BED WITH NO S/S OF DISTRESS.
[2018-10-11] MEDS: CALCIUM CARBONATE 500 MG CHEWABLE TABS PO SCH ×3 (08:21→21:31)
[2018-10-11] MEDS: PANTOPRAZOLE SOD 40 MG TABEC PO SCH (08:21)
[2018-10-11] MEDS: MULTIVITAMINS/MINERALS TAB PO SCH (08:21)
[2018-10-11] MEDS: MAGNESIUM OXIDE 400 MG TAB PO SCH (08:21)
[2018-10-11] MEDS: ASCORBIC ACID 500 MG TAB PO SCH ×2 (08:21→16:40)
[2018-10-11] MEDS: INSULIN LISPRO 100 UNIT/1 ML 3ML VIAL SQ SCH ×3 (08:22→16:40)
[2018-10-11] MEDS: ZINC SULFATE 220 MG CAP PO SCH ×2 (08:22→16:40)
[2018-10-11] MEDS: ONDANSETRON HCL INJ 2MG/ML 2ML 2 MG/ML VIAL IV PRN (08:30)
[2018-10-11] MEDS: MORPHINE SULFATE INJ 4 MG/ML INJ 1ML IV PRN ×2 (14:25→18:35)
--- NOTE | 2018-10-11 14:58 | NUR ---
S/P 1 DAY I&D BY DR. GRAF. WOUND VAC APPLIED PER DR. CASH. PT PREMEDICATED BY PRIMARY NURSE. PT TOLERATED PROCEDURE WELL. MINIMAL DRAINAGE PRESENT. WILL CONTINUE TO FOLLOW UP WITH PT. Addendum: 10/11/18 at 1501 by Leeanne Balderas RN Amended: Links added.
[2018-10-11] MEDS: ENOXAPARIN SOD INJ 40 MG/0.4 ML SYR SC SCH (16:40)
[2018-10-11] MEDS: INSULIN GLARGINE 100 UNITS/ML VIAL SQ SCH (21:00)
--- NOTE | 2018-10-11 21:11 | Progress Note ---
DATE: ADDENDUM: IMPRESSION: 1. Diabetic foot ulcer with worsening cellulitis on the left foot, status post debridement performed on 10/09/2018, now with a wound VAC. 2. Uncontrolled type 2 diabetes. 3. Subjective fever, improving. PLAN: At this time, MRI of the foot was negative. The patient underwent debridement on 10/09/2018. Now he has a wound VAC replaced by Podiatry. Blood cultures were negative. Wound cultures were negative to date. We will continue to follow very closely. He will possibly benefit from a [facility] and which I will see if that is a possibility. I need to discuss this case with ID that he is currently on IV antibiotics. We will monitor and determine how long he wants IV antibiotic therapy for this gentleman. I discussed with him about LTAC and he seems to be agreeable. Otherwise, we will continue same plan of care and monitor very closely. MD BARRY Griffin/YEIMI /[id number]
[2018-10-11] MEDS: ACETAMINOPHEN 325 MG TAB PO PRN (21:34)
--- NOTE | 2018-10-11 21:35 | NUR ---
TEMPERATURE 100.1 AND PATIENT C/O PAIN TO THE LEFT FOOT, MEDICATED WITH TYLENOL ORDERED. CALL LIGHT WITHIN EASY REACH, FAMILY MEMBERS VISITING WITH THE PATIENT.
[2018-10-12] VITALS (8 sets, daily range): BP systolic 89–130; BP diastolic 51–76
[2018-10-12] MEDS: HYDROCODONE/APAP 5MG-325MG TAB PO PRN ×2 (00:55→20:15)
[2018-10-12] MEDS: PIPER-TAZ 3.375 GM 50 ML IV SCH ×3 (00:55→12:00)
--- NOTE | 2018-10-12 00:55 | NUR ---
BLOOD PRESSURE REASSESSED WITH READING OF 104/63, HEART RATE 85. PATIENT C/O PAIN TO THE LEFT FOOT WITH PAIN SCORE #8, MEDICATED WITH NORCO 1TAB ORDERED. CALL LIGHT AND URINAL WITHIN EASY REACH, INSTRUCTED TO CALL FOR ASSISTANCE NEEDED.
[2018-10-12] MEDS: VANCOMYCIN 1GM/NS 250 ML 250 ML IV SCH (02:53)
[2018-10-12] MEDS: MORPHINE SULFATE INJ 4 MG/ML INJ 1ML IV PRN ×3 (05:04→17:20)
--- NOTE | 2018-10-12 05:05 | NUR ---
WOUND VAC INTACT TO THE LEFT FOOT; PATIENT C/O PAIN TO THE LEFT FOOT WITH PAIN SCORE #8, MEDICATED WITH MORPHINE ORDERED. CALL LIGHT AND URINAL WITHIN EASY REACH, HE'S INSTRUCTED TO CALL FOR ASSISTANCE UPON GETTING OUT OF THE BED DUE TO SIDE EFFECT FROM THE MEDICATION.
[2018-10-12 06:19] LABS: BASOPHILS % 0.3 % (0.0-1.0); EOSINOPHILS # (AUTO) 0.2 (0.0-0.4); EOSINOPHILS % 1.5 % (0.0-6.0); HEMATOCRIT 27.6 % (38.2-49.6); HEMOGLOBIN 9.1 g/dL (14.0-18.0); LYMPHOCYTES # (AUTO) 1.2 (1.0-3.2); LYMPHOCYTES % 7.9 % (18.0-39.1); MEAN CORPUSCULAR HEMOGLOBIN 29.4 pg (28-32); MONOCYTES % 6.9 % (4.4-11.3); NEUTROPHILS % 82.7 % (38.7-80.0); PLATELET COUNT 249 x10e3/uL (140-360); RED CELL DISTRIBUTION WIDTH 11.8 % (11.7-14.4)
[2018-10-12] MEDS ORDERED: SODIUM CHLORIDE 0.9% 50ML 50 ML ONE (06:19)
[2018-10-12 06:47] LABS: ANION GAP 15.5 mmol/L (8-16); CALCIUM 8.8 mg/dL (8.4-10.2); CREATININE, SERUM 2.06 mg/dL (0.72-1.25); POTASSIUM 3.5 mmol/L (3.5-5.1)
[2018-10-12] MEDS: INSULIN LISPRO 100 UNIT/1 ML 3ML VIAL SQ SCH ×3 (08:00→17:00)
[2018-10-12] MEDS: PANTOPRAZOLE SOD 40 MG TABEC PO SCH (09:15)
[2018-10-12] MEDS: ASCORBIC ACID 500 MG TAB PO SCH ×2 (09:20→17:26)
[2018-10-12] MEDS: MAGNESIUM OXIDE 400 MG TAB PO SCH (09:20)
[2018-10-12] MEDS: MULTIVITAMINS/MINERALS TAB PO SCH (09:20)
[2018-10-12] MEDS: CALCIUM CARBONATE 500 MG CHEWABLE TABS PO SCH ×3 (09:20→21:24)
[2018-10-12] MEDS: ZINC SULFATE 220 MG CAP PO SCH ×2 (09:20→17:26)
--- NOTE | 2018-10-12 16:03 | Diagnostic Imaging Report ---
Examination: Single AP view of the chest. COMPARISON: None. INDICATION: Shortness of breath DISCUSSION: Lines/tubes: None. Lungs: Low lung volumes. Pulmonary venous congestion. Pleura: No pleural effusion or pneumothorax. Heart and mediastinum: The heart and the mediastinum are unremarkable. Bones and soft tissues: No acute bony abnormalities. IMPRESSION: 1. Low lung volumes with pulmonary venous congestion Signed by: Dr. Gilberto Roger M.D. on 10/12/2018 4:00 PM
[2018-10-12] MEDS: ACETAMINOPHEN 325 MG TAB PO PRN (17:26)
[2018-10-12] MEDS: ENOXAPARIN SOD INJ 40 MG/0.4 ML SYR SC SCH (17:26)
--- NOTE | 2018-10-12 19:45 | Progress Note ---
DATE: 10/12/2018 Medicine Progress Note. SUBJECTIVE: The patient reports he feels a little short of breath on examination. He is on nasal cannula. Chest x-ray has been ordered. PHYSICAL EXAMINATION: VITAL SIGNS 97.3, pulse is 91, respiratory rate 17, blood pressure 121/71, pulse ox 93% on nasal cannula. GENERAL: Not in acute distress. Alert and oriented x3. Cooperative on examination. HEENT: Head; normocephalic, atraumatic. Eyes; pupils are equal, round, and reactive to light bilaterally. Extraocular movements intact bilaterally. Throat; no evidence of erythema or exudates in the posterior pharynx. Has poor dentition. NECK: Supple. Good range of motion. PULMONARY: Clear to auscultation bilaterally. No wheezing, rhonchi, or crackles appreciated. CARDIOVASCULAR: Positive S1 and S2. No murmurs, rubs, or gallops appreciated. ABDOMEN: Soft, nondistended, and nontender to palpation. Bowel sounds present. MUSCULOSKELETAL: Strength is 5/5 throughout. No evidence of any muscle deficits on examination. No weakness appreciated. NEUROLOGIC: Cranial nerves II through XII grossly intact. No evidence of any neurological deficits on exam. SKIN: Intact. Warm to touch. Good cap refill. PSYCHIATRIC: Normal affect and mood. EXTREMITIES: No edema. Good range of motion throughout. LABORATORY DATA: WBC 14, hemoglobin 9, hematocrit is 27, and platelets of 249. Chemistries show a sodium 139, potassium 3.5, chloride 100, bicarb 29, anion gap of 15, BUN 17, creatinine 2, which is also normal of 0.82 on admission, glucose 165, calcium 8.8. Urine wound cultures, no growth. Blood cultures, no growth. IMAGING STUDIES: Chest x-ray shows some mild pulmonary effusion, mild pulmonary venous congestion. IMPRESSION: 1. Diabetic foot ulcer with worsening cellulitis of the left foot, status post debridement performed on 10/09/2018 with a wound VAC. 2. Uncontrolled type 2 diabetes. 3. Subjective fever, resolved. 4. Chronic kidney disease, little bit concern for acute interstitial nephritis and also concomitant with acute tubular necrosis due to antibiotics. PLAN: At this time, chest x-ray is consistent with mild pulmonary edema, which we will go ahead and discontinue IV fluids. IV Lasix given. I am concerned that the underlying renal failure is secondary to antibiotics. We will go ahead and get urine eosinophils and CBC with differential. Continue with IV antibiotics at a lower dose. Discussed case with ID as well. He may treat benefit from an LTAC, which we will go ahead and place in order for as well. He continues to have the wound VAC with no other issues at this time. Get a.m. labs. MD BARRY Griffin/YEIMI /[id number]
--- NOTE | 2018-10-12 20:15 | NUR ---
PATIENT C/O PAIN TO THE LEFT FOOT WITH PAIN SCORE #9, MEDICATED WITH NORCO 1TAB ORDERED. WOUND VAC INTACT TO THE LEFT FOOT, FAMILY MEMBERS VISITING WITH THE PATIENT AT THIS TIME. CALL LIGHT WITHIN EASY REACH, HE'S INSTRUCTED TO CALL FOR ASSISTANCE NEEDED.
[2018-10-12] MEDS: INSULIN GLARGINE 100 UNITS/ML VIAL SQ SCH (21:00)
--- NOTE | 2018-10-12 23:05 | NUR ---
ROUNDS MADE, PATIENT OBSERVED SOUNDLY ASLEEP WITHOUT RESPIRATORY DISTRESS.
[2018-10-13] MEDS: PIPER-TAZ 3.375 GM 50 ML IV SCH ×2 (00:09→12:15)
[2018-10-13] MEDS: MORPHINE SULFATE INJ 4 MG/ML INJ 1ML IV PRN ×3 (00:10→18:00)
[2018-10-13 04:00] VITALS: BP 108/57
--- NOTE | 2018-10-13 04:21 | NUR ---
WALKING ROUNDS MADE, PATIENT OBSERVED SOUNDLY ASLEEP WITHOUT RESPIRATORY DISTRESS AND NO SIGN OF PAIN NOTED.
[2018-10-13 06:06] LABS: BASOPHILS # (AUTO) 0.1 (0.0-0.1); BASOPHILS % 0.4 % (0.0-1.0); EOSINOPHILS # (AUTO) 0.2 (0.0-0.4); EOSINOPHILS % 1.3 % (0.0-6.0); HEMATOCRIT 28.9 % (38.2-49.6); HEMOGLOBIN 9.4 g/dL (14.0-18.0); LYMPHOCYTES # (AUTO) 1.3 (1.0-3.2); LYMPHOCYTES % 9.4 % (18.0-39.1); MEAN CORPUSCULAR HEMOGLOBIN 28.8 pg (28-32); MEAN CORPUSCULAR HGB CONC 32.5 g/dL (31-35); MEAN CORPUSCULAR VOLUME 88.7 fL (81-99); MONOCYTES % 7.1 % (4.4-11.3); NEUTROPHILS # (AUTO) 11.2 (2.1-6.9); PLATELET COUNT 276 x10e3/uL (140-360); RED BLOOD COUNT 3.26 x10e6/uL (4.3-5.7); RED CELL DISTRIBUTION WIDTH 11.8 % (11.7-14.4)
[2018-10-13 06:38] LABS: ANION GAP 15.7 mmol/L (8-16); CALCIUM 8.7 mg/dL (8.4-10.2); CREATININE, SERUM 1.75 mg/dL (0.72-1.25); POTASSIUM 3.7 mmol/L (3.5-5.1)
[2018-10-13 07:52] VITALS: BP 128/73
[2018-10-13] MEDS: MAGNESIUM OXIDE 400 MG TAB PO SCH (08:26)
[2018-10-13] MEDS: CALCIUM CARBONATE 500 MG CHEWABLE TABS PO SCH ×3 (08:27→21:11)
[2018-10-13] MEDS: ASCORBIC ACID 500 MG TAB PO SCH ×2 (08:27→17:01)
[2018-10-13] MEDS: MULTIVITAMINS/MINERALS TAB PO SCH (08:27)
[2018-10-13] MEDS: PANTOPRAZOLE SOD 40 MG TABEC PO SCH (08:27)
[2018-10-13] MEDS: ZINC SULFATE 220 MG CAP PO SCH ×2 (08:27→17:01)
[2018-10-13] MEDS: INSULIN LISPRO 100 UNIT/1 ML 3ML VIAL SQ SCH ×3 (08:27→17:02)
[2018-10-13 08:30] VITALS: BP 128/73
[2018-10-13 11:43] VITALS: BP 131/73
--- NOTE | 2018-10-13 11:43 | NUR ---
Spoke to pt regarding LTAC eval order. Pt states that he has been to [facility] previously and would like for referral to be sent there. Choice letter signed and placed in chart. Copy to pt. Clinicals were faxed to [phone]. Liaisons Patricia Haile and Stephon Sharp were notified.
[2018-10-13 15:57] VITALS: BP 145/77
[2018-10-13] MEDS ORDERED: DOCUSATE SODIUM 100 MG CAP PO PRN (16:00)
--- NOTE | 2018-10-13 16:38 | Progress Note ---
DATE: 10/13/2018 SUBJECTIVE: The patient was seen at bedside today. He is in no apparent distress. He has oxygen. He says he was feeling short of breath. The wound VAC was intact, but it had no drainage to the canister or the tubing, so it was taken down today. MICROBIOLOGY: The prelim from surgery is Enterococcus faecalis and it is sensitive to vanc, penicillin, Zyvox, Cubicin, and ampicillin. He is currently on Pipracil and tazobactam. LABORATORY DATA: His white blood count is trending down, he came in on 10/08/2018 with 18.12, on 10/13/2018, he is 13.84. OBJECTIVE: EXTREMITIES: He has three ulcers to the dorsal, medial and lateral aspect of the right foot. They extend down to bone. The bone beads are visible. No purulence was expressed. The erythema and edema are beginning to localize. No streaking erythema. No ascending lymphangitis. Pedal pulses are palpable. Capillary filling time is delayed. Intrinsic minus type of foot. Protective threshold is absent. ASSESSMENT: 1. Ulcer grade 3, right medial, plantar and intermetatarsal space of right foot. 2. Diabetes with neuropathy. 3. Small vessel peripheral vascular disease. 4. History of noncompliance with diabetes. PLAN: Today, the wound VAC was taken down. There was no drainage in the canister or in the tubing. A Betadine wet-to-dry dressing was reapplied. I will attempt the wound VAC again tomorrow depending on what the wound is looking like. The erythema and edema are beginning to localize and it is beginning to improve. I suspect he is going to need IV antibiotics for the osteomyelitis. We discussed compliance with diabetes myelitis and offloading. He is probably going to be transferred to LTAC and he is pending evaluation. I will continue to follow. SHERRIE Valentin/YEIMI /[id number]
[2018-10-13] MEDS: ENOXAPARIN SOD INJ 40 MG/0.4 ML SYR SC SCH (17:01)
[2018-10-13] MEDS ORDERED: CITRATE OF MAGNESIA 300ML BOTTLE PO PRN (18:00)
[2018-10-13] MEDS: HYDROCODONE/APAP 5MG-325MG TAB PO PRN (19:57)
[2018-10-13 20:00] VITALS: BP 114/59
--- NOTE | 2018-10-13 20:02 | NUR ---
KAE WRAP DRESSING DRY AND INTACT TO THE LEFT FOOT, SWELLING NOTED TO THE TOES WITH WOUND VAC INTACT. PATIENT C/O PAIN TO THE LEFT FOOT WITH PAIN SCORE #8, MEDICATED WITH NORCO 1TAB ORDERED. CALL LIGHT WITHIN EASY REACH, HE'S INSTRUCTED TO CALL FOR ASSISTANCE NEEDED.
[2018-10-13] MEDS: INSULIN GLARGINE 100 UNITS/ML VIAL SQ SCH (21:12)
--- NOTE | 2018-10-13 21:50 | Progress Note ---
DATE: 10/13/2018 Medicine Progress Note SUBJECTIVE: The patient had a fever today 101.5. He states he was feeling very nauseous. The T-max was a 101.5. Blood cultures were re-ordered. Discussed case with nursing staff. OBJECTIVE: VITAL SIGNS: Temperature currently was 101.5, T-max 101.5, pulse 101, respiratory rate 17, blood pressure 145/77, pulse ox 93% on 2 L nasal cannula. GENERAL: No acute distress. Alert and oriented x3. Cooperative on examination. HEENT: Head; normocephalic, atraumatic. Eyes; pupils are equal, round, and reactive to light bilaterally. Extraocular movements are intact bilaterally. NECK: Supple. Good range of motion. Throat, no evidence of erythema or exudates in the posterior pharynx. Has poor dentition. PULMONARY: Clear to auscultation bilaterally. No wheezing, rales, or rhonchi. No crackles appreciated. CARDIOVASCULAR: Positive S1, S2. No murmurs, rubs, or gallops appreciated. ABDOMEN: Soft, nondistended, and nontender to palpation. Bowel sounds present. MUSCULOSKELETAL: Strength is 5/5 throughout. No evidence of any muscle deficits on examination. No weakness appreciated. NEUROLOGIC: Cranial nerves II through XII grossly intact. No evidence of any neurological deficits on exam. SKIN: Intact. Warm to touch. Good cap refill. PSYCHIATRIC: Normal affect and mood. EXTREMITIES: No edema. Good range of motion throughout. LAB FINDINGS: Show white count was 13.8, hemoglobin 9.4, hematocrit 28.9, and platelets of 276. Coagulation; PT 14, INR 1. Chemistry; sodium 139, potassium 3.7, chloride 102, bicarb 25, anion gap of 15, BUN is 18, creatinine is 1.75 downtrended from 2. Glucose is 101, calcium is 8.7. MICROBIOLOGY: Wound cultures consistent with Enterococcus faecalis. Repeat blood cultures are pending. Initial blood cultures were negative. Wound cultures initially were negative, but the deep tissue cultures were consistent with Enterococcus faecalis. IMAGING STUDIES: None new. IMPRESSION: 1. Diabetic foot ulcer with underlying cellulitis of the left foot, status post debridement performed on 10/09/2018 with a wound VAC. 2. Uncontrolled type 2 diabetes. 3. New onset fever, T-max 101.5 today. 4. Acute on chronic kidney disease, stage 3, now improving. PLAN: At this time, the patient states he is breathing much better now after the IV diuretic. He did develop new onset of fever and blood cultures x2 were ordered. The patient continues to be on IV antibiotics as well. We are going to monitor for any more fevers. His wound cultures are back for Enterococcus for which the antibiotics should be taken care of that. Podiatry and ID are following as well. I will follow with the domestic travel consultant's recommendations. There is an [facility] LT[facility] placement as he likely needs long-term IV antibiotics as well as continuous wound care as well as wound VAC care. We will get a.m. labs. MD BARRY Griffin/YEIMI /[id number]
[2018-10-14] VITALS (8 sets, daily range): BP systolic 118–158; BP diastolic 66–80
[2018-10-14] MEDS: PIPER-TAZ 3.375 GM 50 ML IV SCH ×2 (00:35→12:00)
[2018-10-14] MEDS: MORPHINE SULFATE INJ 4 MG/ML INJ 1ML IV PRN ×4 (00:35→21:22)
--- NOTE | 2018-10-14 00:35 | NUR ---
PATIENT C/O PAIN TO THE LEFT FOOT, MEDICATED WITH MORPHINE ORDERED. CALL LIGHT AND URINAL WITHIN EASY REACH, HE'S INSTRUCTED TO CALL FOR ASSISTANCE UPON GETTING OUT OF THE BED DUE TO SIDE EFFECT OF THE PAIN MEDICATION.
--- NOTE | 2018-10-14 04:50 | NUR ---
NO RESPIRATORY DISTRESS OBSERVED, PATIENT C/O PAIN TO THE LEFT FOOT. MEDICATED WITH MORPHINE ORDERED, CALL LIGHT AND URINAL WITHIN EASY REACH.
[2018-10-14 05:13] LABS: BASOPHILS % 0.3 % (0.0-1.0); EOSINOPHILS # (AUTO) 0.1 (0.0-0.4); EOSINOPHILS % 1.1 % (0.0-6.0); HEMATOCRIT 28.4 % (38.2-49.6); HEMOGLOBIN 9.4 g/dL (14.0-18.0); LYMPHOCYTES # (AUTO) 1.2 (1.0-3.2); LYMPHOCYTES % 9.4 % (18.0-39.1); MEAN CORPUSCULAR HEMOGLOBIN 28.9 pg (28-32); MEAN CORPUSCULAR HGB CONC 33.1 g/dL (31-35); MEAN CORPUSCULAR VOLUME 87.4 fL (81-99); MONOCYTES % 7.8 % (4.4-11.3); NEUTROPHILS # (AUTO) 10.4 (2.1-6.9); NEUTROPHILS % 80.7 % (38.7-80.0); PLATELET COUNT 291 x10e3/uL (140-360); RED BLOOD COUNT 3.25 x10e6/uL (4.3-5.7); RED CELL DISTRIBUTION WIDTH 11.8 % (11.7-14.4)
[2018-10-14 05:37] LABS: ANION GAP 14.5 mmol/L (8-16); CREATININE, SERUM 1.54 mg/dL (0.72-1.25); POTASSIUM 3.5 mmol/L (3.5-5.1)
--- NOTE | 2018-10-14 05:37 | Progress Note ---
DATE: 10/11/2018 Medicine Progress Note SUBJECTIVE: The patient now has a wound VAC in his left foot. He is doing well. Still awaiting for cultures. No overnight events. PHYSICAL EXAMINATION: VITAL SIGNS: Temperature is 98.4, pulse 90, respiratory rate is 20, blood pressure 116/67, and pulse ox 93% on nasal cannula. GENERAL: Not in acute distress. Alert and oriented x3. Cooperative on examination. HEENT: Head; normocephalic, atraumatic. Eyes; pupils are equal, round, and reactive to light bilaterally. Extraocular movements intact bilaterally. Throat; no evidence of erythema or exudates in the posterior pharynx. Has poor dentition. NECK: Supple. Good range of motion. PULMONARY: Clear to auscultation bilaterally. No wheezing, rhonchi, or crackles appreciated. CARDIOVASCULAR: Positive S1 and S2. No murmurs, rubs, or gallops appreciated. ABDOMEN: Soft, nondistended, and nontender to palpation. Bowel sounds present. MUSCULOSKELETAL: Strength is 5/5 throughout. No evidence of any muscle deficits on examination. No weakness appreciated. NEUROLOGIC: Cranial nerves II through XII grossly intact. No evidence of any neurological deficits on exam. SKIN: Intact. Warm to touch. Good cap refill. PSYCHIATRIC: Normal affect and mood. EXTREMITIES: No edema. Good range of motion throughout. LABORATORY FINDINGS: Show white count 16.7, hemoglobin 10.1, hematocrit is 31, and platelets of 254. Chemistry; sodium 137, potassium 3.8, chloride 100, bicarb 26, anion gap of 14, BUN 17, creatinine is 1.62, glucose 139, and calcium is 8.8. MICROBIOLOGY: Blood cultures negative. Wound cultures were negative. Wound cultures of the tissue shows pending growth. IMAGING STUDIES: None. DICTATION ENDS HERE MD BARRY Griffin/YEIMI /[id number]
--- NOTE | 2018-10-14 07:05 | NUR ---
RCD PT AT BED PT IS ALERT AND ORIENTED RESTING ON BED NO SIGNS OF ANY DISTRESS NOTED IV PATENT BY SALINE FLUSH BED LOW AND LOCKED CALL LIGHT IN REACH
[2018-10-14] MEDS: INSULIN LISPRO 100 UNIT/1 ML 3ML VIAL SQ SCH ×3 (07:30→16:30)
[2018-10-14] MEDS: PANTOPRAZOLE SOD 40 MG TABEC PO SCH (07:30)
[2018-10-14] MEDS: ZINC SULFATE 220 MG CAP PO SCH ×2 (09:00→16:50)
[2018-10-14] MEDS: CALCIUM CARBONATE 500 MG CHEWABLE TABS PO SCH ×3 (09:00→21:21)
[2018-10-14] MEDS: MULTIVITAMINS/MINERALS TAB PO SCH (09:00)
[2018-10-14] MEDS: ASCORBIC ACID 500 MG TAB PO SCH ×2 (09:00→16:50)
[2018-10-14] MEDS: MAGNESIUM OXIDE 400 MG TAB PO SCH (09:00)
--- NOTE | 2018-10-14 09:44 | NUR ---
Spoke to Stephon Sharp with [facility] regarding LTAC referral. She stated they have received referral and are working it up. Will let CM know if they need any additional clinicals. MOT was initiated and placed with pt's packet at nurse's station.
[2018-10-14] MEDS ORDERED: SODIUM CHLORIDE 0.9% 250ML 250 ML ONE (12:19)
[2018-10-14] MEDS: CEFTRIAXONE SOD 1 GM/NS 50 ML 50 ML IV SCH (13:15)
[2018-10-14] MEDS: AMPICILLIN SOD/SULBACTAM 3GM 100 ML IV SCH ×2 (13:53→21:22)
--- NOTE | 2018-10-14 16:08 | NUR ---
Nutrition LOS Note RD Recommendation(s) for Physician / Nutrition Prescription: continue with diet as prescribed Plan of Care: Patient has been screened and assessed for nutrition risk. At this time, the patient does not pose any nutrition risk. No further nutrition intervention is warranted at this time. Will re-evaluate if consulted by medical staff. Nutrition reason for involvement: LOS Primary Dx: L foot abscess/ cellulitis PMH: peripheral neuropathy, uncontrolled type 2 diabetes Ht: 68in Wt: 181.38lb BMI: 27.6kg/m2 IBW: 154lb +/- 10% RD Assessment: (10/14) 48yo M, who was admitted for L foot abscess/ cellulitis. S/p debridement performed on 10/09/2018 with a wound VAC. HbA1c at 12.2%.Visited pt in the room. Pt reported fair appetite with 75-100% recorded meal intake. Pt denied any nausea or vomiting. Pt complained of constipation; laxative was given today. Pt denied any chewing or swallowing difficulty. No recent weight loss reported. Current diet is appropriate and adequate. Current diet: ADA 1800 Malnutrition Evaluation (10/14/2018) The patient does not meet criteria for a specified degree of malnutrition at this time. Will re-evaluate at follow-up as appropriate. Diet Education Needs Assessment: Diet education indicated, pt was not interested at this time. Nutrition Care Level: Low Signed by Chelsey Benitez, MS, RD, LD
[2018-10-14] MEDS: ENOXAPARIN SOD INJ 40 MG/0.4 ML SYR SC SCH (16:51)
[2018-10-14] MEDS ORDERED: ONDANSETRON HCL 4 MG ORAL DISINTEGRATING TAB PO PRN (17:00)
--- NOTE | 2018-10-14 19:10 | NUR ---
PT RESTING ON BED BED SIDE REPORT GIVEN TO ONCOMING NURSE
[2018-10-14] MEDS: ACETAMINOPHEN 325 MG TAB PO PRN (21:25)
[2018-10-14] MEDS: INSULIN GLARGINE 100 UNITS/ML VIAL SQ SCH (21:26)
--- NOTE | 2018-10-14 22:35 | Progress Note ---
DATE: 10/14/2018 Medicine Progress Note SUBJECTIVE: The patient was afebrile throughout the night. He did have some fever yesterday afternoon. Since then, he has been fine with no issues. OBJECTIVE: VITAL SIGNS: Temperature is 98.8, pulse 94, respiratory rate is 18, blood pressure 132/66, pulse ox 95% on 2 L nasal cannula. GENERAL: Not in acute distress. Alert and oriented x3. Cooperative on examination. HEENT: Head is normocephalic and atraumatic. Eyes; pupils are equal, round, and reactive to light bilaterally. Extraocular movements are intact bilaterally. NECK: Supple. Good range of motion. Throat; no evidence of erythema or exudate in posterior pharynx. Has poor dentition. PULMONARY: Clear to auscultation bilaterally. No wheezing, rales, or rhonchi. No crackles appreciated. CARDIOVASCULAR: Positive S1, S2. No murmurs, rubs, or gallops appreciated. ABDOMEN: Soft, nondistended, nontender to palpation. Bowel sounds present. MUSCULOSKELETAL: Strength is 5/5 throughout. No evidence of any muscle deficits on examination. No weakness appreciated. NEUROLOGIC: Cranial nerves II through XII grossly intact. No evidence of any neurological deficits on exam. SKIN: Intact. Warm to touch. Good cap refill. PSYCHIATRIC: Normal affect and mood. EXTREMITIES: No edema. Good range of motion throughout. LAB FINDINGS: Show white count 4.8, hemoglobin 9.4, hematocrit 28, and platelets of 291. MICROBIOLOGY: Blood cultures were negative. Initial foot wound culture was negative. The deep tissue wound culture shows Enterococcus faecalis. Repeat blood cultures were negative. IMAGING STUDIES: None. ASSESSMENT: 1. Diabetic foot ulcer with underlying cellulitis of the left foot, status post debridement performed on 10/09/2018 with a wound VAC. 2. Uncontrolled type 2 diabetes. 3. Fever from yesterday, resolved. 4. Acute on chronic stage 3 at baseline. PLAN: At this time, the fever from yesterday, we did repeat blood cultures which were found to be no growth to date. He has been afebrile since. Antibiotics were rearranged by ID and ID is following very closely. He is getting daily wound care and local wound care as well as the wound VAC and Podiatry and Wound Care team are following him as well. I did put in order for LTAC for continuous care. I feel like the patient does need continuous wound care and wound VAC treatment including IV antibiotics on a daily basis. He needs close monitoring by a physician continuously to make sure that his foot does heal. At this time, we will wait for LTAC approval and get a.m. labs. MD BARRY Griffin/MODEfraín /[id number]
[2018-10-15] VITALS: BP 122/69
[2018-10-15 04:00] VITALS: BP 118/73
[2018-10-15 04:58] LABS: BASOPHILS % 0.3 % (0.0-1.0); EOSINOPHILS # (AUTO) 0.1 (0.0-0.4); EOSINOPHILS % 1.2 % (0.0-6.0); HEMATOCRIT 27.1 % (38.2-49.6); HEMOGLOBIN 8.8 g/dL (14.0-18.0); LYMPHOCYTES # (AUTO) 1.2 (1.0-3.2); LYMPHOCYTES % 10.3 % (18.0-39.1); MEAN CORPUSCULAR HEMOGLOBIN 28.7 pg (28-32); MEAN CORPUSCULAR HGB CONC 32.5 g/dL (31-35); MEAN CORPUSCULAR VOLUME 88.3 fL (81-99); MONOCYTES % 9.2 % (4.4-11.3); NEUTROPHILS # (AUTO) 8.9 (2.1-6.9); NEUTROPHILS % 78.1 % (38.7-80.0); PLATELET COUNT 307 x10e3/uL (140-360); RED BLOOD COUNT 3.07 x10e6/uL (4.3-5.7); RED CELL DISTRIBUTION WIDTH 11.9 % (11.7-14.4)
[2018-10-15 05:31] LABS: ANION GAP 13.8 mmol/L (8-16); CALCIUM 8.8 mg/dL (8.4-10.2); CREATININE, SERUM 1.39 mg/dL (0.72-1.25); POTASSIUM 3.8 mmol/L (3.5-5.1)
[2018-10-15] MEDS: AMPICILLIN SOD/SULBACTAM 3GM 100 ML IV SCH ×2 (05:33→14:00)
--- NOTE | 2018-10-15 06:30 | NUR ---
IM- progress note O/N; no events v/s; revd PE: nad anicteric ns1s2 mod bs soft nt nd right foot normal; left foot dressing clean and dry; wound vac removed skin dry n. affect a&ox3 ram labs/meds; revd A/P: 48yoM 1. Diabetic foot ulcer with underlying cellulitis of the left foot, status post debridement performed on 10/09/2018 with a wound VAC. 2. Uncontrolled type 2 diabetes. 3. Fever from yesterday, resolved. 4. Acute on chronic stage 3 at baseline. PLAN: At this time, the fever from yesterday, we did repeat blood cultures which were found to be no growth to date. He has been afebrile since. Antibiotics were rearranged by ID and ID is following very closely. He is getting daily wound care and local wound care as well as the wound VAC and Podiatry and Wound Care team are following him as well. I did put in order for LTAC for continuous care. I feel like the patient does need continuous wound care and wound VAC treatment including IV antibiotics on a daily basis. He needs close monitoring by a physician continuously to make sure that his foot does heal. At this time, we will wait for LTAC approval and get a.m. labs. 10/15 Hba1c 12.2. check lipid panel; PT consult; UBALDO; supratherapeutic vanco; f/u renal fn; MRI unlikely Osteomyelitis; LTAC eval ongoing.
[2018-10-15 07:22] LABS: CHOL/HDL RATIO 3.7 (3.9-4.7)
[2018-10-15] MEDS: INSULIN LISPRO 100 UNIT/1 ML 3ML VIAL SQ SCH ×3 (07:30→16:30)
[2018-10-15] MEDS: PANTOPRAZOLE SOD 40 MG TABEC PO SCH (07:30)
[2018-10-15 08:33] VITALS: BP 141/78
[2018-10-15] MEDS: MORPHINE SULFATE INJ 4 MG/ML INJ 1ML IV PRN ×2 (08:48→12:38)
[2018-10-15] MEDS: CALCIUM CARBONATE 500 MG CHEWABLE TABS PO SCH ×2 (09:00→15:00)
[2018-10-15] MEDS: ASCORBIC ACID 500 MG TAB PO SCH ×2 (09:00→16:34)
[2018-10-15] MEDS: MULTIVITAMINS/MINERALS TAB PO SCH (09:00)
[2018-10-15] MEDS: ZINC SULFATE 220 MG CAP PO SCH ×2 (09:00→16:34)
[2018-10-15] MEDS: MAGNESIUM OXIDE 400 MG TAB PO SCH (09:00)
[2018-10-15 09:06] VITALS: BP 141/78
--- NOTE | 2018-10-15 11:00 | NUR ---
DRESSING CHANGED ON LEFT FOOT
[2018-10-15 12:08] VITALS: BP 147/82
[2018-10-15] MEDS: CEFTRIAXONE SOD 1 GM/NS 50 ML 50 ML IV SCH (13:14)
--- NOTE | 2018-10-15 14:18 | NUR ---
Received MOT from Carmita Hunter with [address] [place] [address] Rm [id number] after 4:30pm MAURIZIO SungO Dr. Lopez to attend MOT was completed and placed with pt's packet at nurses station. SURAJ Hewitt was notified.
[2018-10-15 16:39] VITALS: BP 144/76
--- NOTE | 2018-10-15 16:57 | NUR ---
REPORT GIVEN TO MAKAYLA AND NOTIFIED THE TILE LAYER SUPERVISOR
--- NOTE | 2018-10-15 18:51 | NUR ---
PT RESTING ON BED BED SIDE REPORT GIVEN TO ONCOMING NURSE
--- NOTE | 2018-10-15 19:43 | NUR ---
Received patient from day nurse, patient is alert and oriented, patient is discharged and waiting for hop picker to [facility]. As per day nurse, report has already be given to Ida at [facility], the facility want patient to come with his IV, as per day nurse, old iv was replaced with new one, R. H 20G. patent, no redness, denies pain.
--- NOTE | 2018-10-15 20:30 | NUR ---
patient discharged and left unit via wheel chair enroute to [facility].
--- NOTE | 2018-10-24 12:59 | NUR ---
D/C summary Principal dx: 1. Diabetic foot ulcer with underlying cellulitis of the left foot, status post debridement performed on 10/09/2018 with a wound VAC. 2. Uncontrolled type 2 diabetes. 3. Fever from yesterday, resolved. 4. Acute on chronic stage 3 at baseline. PLAN: At this time, the fever from yesterday, we did repeat blood cultures which were found to be no growth to date. He has been afebrile since. Antibiotics were rearranged by ID and ID is following very closely. He is getting daily wound care and local wound care as well as the wound VAC and Podiatry and Wound Care team are following him as well. I did put in order for LTAC for continuous care. I feel like the patient does need continuous wound care and wound VAC treatment including IV antibiotics on a daily basis. He needs close monitoring by a physician continuously to make sure that his foot does heal. At this time, we will wait for LTAC approval and get a.m. labs. 10/15 Hba1c 12.2. check lipid panel; PT consult; UBALDO; supratherapeutic vanco; f/u renal fn; MRI unlikely Osteomyelitis; LTAC eval ongoing. d/c to LTAC stable f/u pcp 1 week and podiatry 1 week d/c>35mins Jovanny Nicholas MD, PhD.
== END 2018-10-15 20:32 | DRG 853 ==
LOC: MED/SURG2 10:34
PROVIDERS: ADMIT Internal Medicine; ATTEND Internal Medicine
PROC: 0JDR0ZZ Extraction of Left Foot Subcutaneous Tissue and Fascia, Open Approach (ICD-10-PCS; 2018-10-10)
PROC: 3E0102A Introduction of Anti-Infective Envelope into Subcutaneous Tissue, Open Approach (ICD-10-PCS; 2018-10-10)
PROC: 0QDP0ZZ Extraction of Left Metatarsal, Open Approach (ICD-10-PCS; principal; 2018-10-10 13:52)
DX: A41.9 Sepsis, unspecified organism (principal); N17.0 Acute kidney failure with tubular necrosis; L03.116 Cellulitis of left lower limb; L02.612 Cutaneous abscess of left foot; N17.9 Acute kidney failure, unspecified; E11.628 Type 2 diabetes mellitus with other skin complications; E11.42 Type 2 diabetes mellitus with diabetic polyneuropathy; Z83.3 Family history of diabetes mellitus; Z82.49 Family history of ischemic heart disease and other diseases of the circulatory system; E11.621 Type 2 diabetes mellitus with foot ulcer; L97.529 Non-pressure chronic ulcer of other part of left foot with unspecified severity; E11.65 Type 2 diabetes mellitus with hyperglycemia; Z79.4 Long term (current) use of insulin; B95.2 Enterococcus as the cause of diseases classified elsewhere; N14.1 Nephropathy induced by other drugs, medicaments and biological substances; T36.8X5A Adverse effect of other systemic antibiotics, initial encounter; Y92.230 Patient room in hospital as the place of occurrence of the external cause; E11.51 Type 2 diabetes mellitus with diabetic peripheral angiopathy without gangrene; E11.22 Type 2 diabetes mellitus with diabetic chronic kidney disease; I12.9 Hypertensive chronic kidney disease with stage 1 through stage 4 chronic kidney disease, or unspecified chronic kidney disease; N18.3 Chronic kidney disease, stage 3 (moderate)
CPT/HCPCS: 36415; 71045; 80048; 80053; 80061; 80202; 82948; 83036; 85025; 85610; 85651; 86140; 87040; 87071; 87075; 87186; 87205; 93005; 93922; 93925; 96367; 96372; 96376; 97139; 97607; C1713; J0295; J0696; J1100; J1650; J1815; J2001; J2250; J2270; J2405; J2543; J3010; J3370; J7050